=== PATIENT | female | born 1975 | race Caucasian/White ===

== ENCOUNTER → 2018-08-22 08:48 | Outpatient (CLI) | payer MEDICAID, SELFPAY ==
[2018-08-22 08:52] LABS: Microscopic, Urine URINE MICROSCOPIC (MICROSCOPIC)
--- NOTE | 2018-08-22 09:01 | XR_ITS ---
EXAM: XR cervical spine 3V HISTORY: ITS.REASON: NECK PAIN ORDERING PHYSICIAN: Terry Obrien PATIENT AGE: 43 years COMPARISON: None FINDINGS: There is head tilt toward the left with a craniocervical curvature convex right. There is normal alignment. No fracture or dislocation. Small anterior osteophytes are present at C4 and C5 inferiorly. The disc spaces are well-preserved. No significant degenerative change. IMPRESSION: Head tilt toward the left possibly related to spasm/torticollis otherwise negative
[2018-08-22 09:07] LABS: Basophils % 0.3 % (0.1-2.0); Eosinophils # 0.1 K/mm3 (0.0-0.4); Eosinophils % 0.9 % (0.1-12.0); Hemoglobin 11.3 g/dL (12.2-16.2); Lymphocytes # 2.2 K/mm3 (0.7-4.5); Lymphocytes % 24.2 % (10-50); Mean Corpuscular HGB Conc 31.4 g/dL (31.8-35.4); Mean Corpuscular Volume 79.6 fl (81-99); Mean Platelet Volume 7.4 fl (7.4-10.4); Monocytes # 0.6 K/mm3 (0.1-1.0); Monocytes % 6.6 % (1.7-9.3); Neutrophils # 6.3 K/mm3 (1.8-7.8); Neutrophils % 68.2 % (37.0-80.0); Platelet Count 388 K/mm3 (142-424); Red Blood Count 4.52 M/mm3 (4.20-5.40); Red Cell Distribution Width 13.4 % (11.5-17.5); White Blood Count 9.3 K/mm3 (4.8-10.8)
[2018-08-22 09:10] LABS: Appearance,Urine CLOUDY (Clear); Bilirubin,Urine Negative (Negative); Blood, Urine Negative (Negative); Color,Urine YELLOW (Yellow); Glucose,Urine (UA) Negative (Negative); Ketones,Urine Negative (Negative); Leukocyte Esterase,Urine Negative (Negative); Nitrate,Urine Negative (Negative); Protein,Urine Negative (Negative); Specific Gravity, Urine 1.015 (1.005-1.030); Urobilinogen,Urine 0.2 EU/dl (0.2)
[2018-08-22 09:34] LABS: Bacteria,Urine 4+ /lpf
[2018-08-22 10:03] LABS: Alanine Aminotransferase 17 U/L (12-78); Albumin Level 3.5 gm/dL (3.4-5.0); Albumin/Globulin Ratio 0.9 (1.1-1.8); Alkaline Phosphatase 123 U/L (46-116); Anion Gap 11.6 mEq/L (5-15); Aspartate Amino Transferase 4 U/L (15-37); Bilirubin,Total 0.2 mg/dL (0.2-1.0); Blood Urea Nitrogen 16 mg/dL (7-18); Calcium 8.9 mg/dL (8.5-10.1); Carbon Dioxide 27 mmol/L (21.0-32.0); Chloride 104 mmol/L (98-107); Chol/HDL Ratio 3.9 (1-3.5); Cholesterol 193 mg/dL (140-200); Creatinine,Serum 0.81 mg/dL (0.55-1.02); Estimated Glomerular Filt Rate 76 ml/min (>60); GFR (African American) 93 ML/MIN (>60); Globulin 3.7 gm/dl (1.3-3.2); Glucose 118 mg/dL (74-106); HDL Cholesterol 49 mg/dL (29-89); LDL Cholesterol 129 mg/dL (0-130); Potassium 4.6 mmoL/L (3.5-5.1); Sodium 138 mmol/L (136-145); Total Protein,Serum 7.2 gm/dL (6.4-8.2); Triglycerides 73 mg/dL (30-200); VLDL Cholesterol 15 mg/dL (0-40)
== END ==
PROVIDERS: Visit Provider Family Medicine
DX: Z00.00 Encounter for general adult medical examination without abnormal findings (principal); M54.2 Cervicalgia
CPT/HCPCS: 36415; 72040; 80053; 80061; 81001; 84439; 84443; 85025; 87086; 87088; 87186

== ENCOUNTER 2022-03-01 09:19 | Emergency (ER) | payer MEDICAID, SELFPAY ==
[2022-03-01 09:30] VITALS: BP 148/77; PULSE 83; RESP 20; TEMP 36.9; O2SAT 97; BMI 32.1
--- NOTE | 2022-03-01 10:08 | EXP.UTC ---
Discharge Plan Disposition Patient Disposition: Home, Self-Care Condition: Good Prescriptions Prescriptions: New azithromycin [Zithromax] 250 mg tablet 250 mg PO UD DOSE PK Qty: 6 0RF Rx Instructions: Take two (2) tablets today, then one (1) tablet days #2 thru #5 benzonatate [benzonatate] 100 mg capsule 100 mg PO TIDP PRN (Reason: Cough) Qty: 30 0RF guaifenesin [Mucinex] 600 mg tablet extended release 12hr 600 - 1,200 mg PO BIDP PRN (Reason: Congestion) Qty: 30 0RF methylprednisolone 4 mg Tablets,Dose Pack 4 mg PO DIRECTED Qty: 21 0RF Referrals Follow up/Referrals: Provider,Referral, MD [Primary Care Provider] - See instructions Clinical Impressions Clinical Impression: Sinusitis, Pharyngitis Stand Alone Forms Stand Alone Forms: Work/School Release Discharge ED Provider: Gabriel Cárdenas [facility] [place] HPI General Stated complaint: cough, sore throat Mode of Arrival: Ambulatory Source of Information: Patient Limitations: No Limitations Time Seen by Provider: 03/01/22 10:10 Description of Symptoms (Recalled from Triage Doc. by RN): PATIENT C/O COUGH AND SINUS DRAINAGE X 2 WEEKS HEENT Symptoms (Recalled from RN notes): Yes Resp Symptoms (Recalled from RN notes): Yes Skin Symptoms (Recalled from RN notes): No MS Symptoms (Recalled from RN notes): No Functional Status (Recalled from RN notes): WNL History of Present Illness Provider Complaint: She states that for the past 3 days she has had sinus congestion and sinus drainage. Related Data Previous Rx's Medication Instructions Recorded azithromycin 250 mg tablet 250 mg PO UD DOSE PK #6 tabs 03/01/22 (Zithromax) benzonatate 100 mg capsule 100 mg PO TIDP PRN Cough #30 caps 03/01/22 guaifenesin 600 mg tablet, 600 - 1,200 mg PO BIDP PRN 03/01/22 extended release 12 hr (Mucinex) Congestion #30 tabs methylprednisolone 4 mg tablets in 4 mg PO DIRECTED #21 tabs 03/01/22 a dose pack Allergies Allergy/AdvReac Type Severity Reaction Status Date / Time No Known Allergies Allergy Unverified 06/08/17 15:38 Worker's Comp Is this a Worker's Comp case?: No PFSH PFSH Medical History History of gastroesophageal reflux (GERD) Urinary tract infection Surgical History History of dilation and curettage History of tubal ligation Social History Smoking Status: Unknown if ever smoked alcohol intake: never current occupational status: other Travel in the last 8 weeks: None ROS Obtained: Yes All systems reviewed & no additional complaints except as documented Constitutional Constitutional: Reports chills and Reports fever(s) Eyes Eyes: Denies eye discharge ENT Ears, Nose, Mouth, and Throat: Reports as per HPI Cardiovascular Cardiovascular: Denies chest pain Respiratory Respiratory: Denies chest congestion and Reports cough Gastrointestinal Gastrointestingal: Reports nausea; Denies abdominal pain, constipation, cramping, diarrhea or vomiting Musculoskeletal Musculoskeletal: Denies arthralgias Integumentary/Breasts Skin/Breast: Denies rash Neurologic Neurologic: Denies paresthesias Physical Exam General General appearance: alert and in no apparent distress Head Head exam: atraumatic, normocephalic and normal inspection Eye Eye exam: Present normal appearance, PERRL and EOMI ENT ENT exam: Present mucous membranes moist and normal external ear exam Expanded ENT Exam TM/Canal exam: Bilateral TM: erythema and bulging Nose exam: Absent sinus tenderness Mouth exam: Present normal external inspection; Absent drooling Teeth exam: Present normal inspection Throat exam: Present tonsillar erythema, tonsillomegaly and tonsillar exudate Neck Neck exam: Present normal inspection, full ROM and trachea midline; Absent tenderness, meningismus or lymphadenopathy Chest Chest inspection:
[2022-03-01 10:18] VITALS: BP 148/77; PULSE 83; RESP 20; TEMP 36.9; O2SAT 97
== END 2022-03-01 10:34 | disposition home or self-care (01) ==
PROVIDERS: Emergency Provider Nurse Practitioner Family
DX: J02.9 Acute pharyngitis, unspecified (principal); J32.9 Chronic sinusitis, unspecified; R05.9 Cough, unspecified
CPT/HCPCS: 99212; C9803; G0463; U0003; U0005

== ENCOUNTER 2024-05-28 18:10 | Emergency (ER) | payer MEDICAID, SELFPAY ==
[2024-05-28] VITALS (8 sets, daily range): BP systolic 149–170; BP diastolic 79–93; PULSE 69–89; RESP 14–18; TEMP 36.4–36.7; O2SAT 97–100; BMI 28.3
--- NOTE | 2024-05-28 18:35 | XR_ITS ---
PROCEDURE INFORMATION: Exam: XR Right Hip Exam date and time: 05/28/2024 7:02 PM Age: 48 years old Clinical indication: Hip pain; Right hip; Additional info: Right lateral hip tenderness TECHNIQUE: Imaging protocol: Radiologic exam of the right hip. Views: 2 or 3 views hip with pelvis when performed. COMPARISON: CR XR HIP RT 2-3V W/PELVIS 05/28/2024 7:02 PM FINDINGS: Bones/joints: Bony overgrowth superolateral acetabulum. Soft tissues: Unremarkable. IMPRESSION: 1. No acute findings. 2. Bony overgrowth superolateral acetabulum.
--- NOTE | 2024-05-28 18:35 | CT_ITS ---
PROCEDURE INFORMATION: Exam: CT Cervical Spine Without Contrast Exam date and time: 05/28/2024 7:21 PM Age: 48 years old Clinical indication: Neck pain; Additional info: Right sided neck pain, decreased strength TECHNIQUE: Imaging protocol: Computed tomography of the cervical spine without contrast. Radiation optimization: All CT scans at this facility use at least one of these dose optimization techniques: automated exposure control; mA and/or kV adjustment per patient size (includes targeted exams where dose is matched to clinical indication); or iterative reconstruction. COMPARISON: CR [id number] XR cervical spine 3V 08/22/2018 9:18 AM FINDINGS: Bones: Level moderate multilevel bilateral facet arthropathy. Osseous alignment is normal. No acute fracture or subluxation. Lungs: Lung apices are normal. Thyroid: Thyroid gland is mildly enlarged and heterogeneous in appearance Soft tissues: Unremarkable. IMPRESSION: 1. Mild degenerative changes of the cervical spine. No acute fracture 2. Mildly enlarged, heterogeneous thyroid gland. Correlation with thyroid ultrasound recommended.
--- NOTE | 2024-05-28 18:35 | XR_ITS ---
PROCEDURE INFORMATION: Exam: XR Lumbosacral Spine Exam date and time: 05/28/2024 7:04 PM Age: 48 years old Clinical indication: Other: Acute on chronic pain TECHNIQUE: Imaging protocol: Radiologic exam of the lumbosacral spine. Views: 2 or 3 views. COMPARISON: CR XR HIP RT 2-3V W/PELVIS 05/28/2024 7:02 PM FINDINGS: Bones/joints: Normal. No acute fracture. Normal alignment. Soft tissues: Unremarkable. IMPRESSION: No acute findings.
--- NOTE | 2024-05-28 18:35 | CT_ITS ---
PROCEDURE INFORMATION: Exam: CT Neck With Contrast Exam date and time: 05/28/2024 7:24 PM Age: 48 years old Clinical indication: Mass, lump, or swelling in neck; Right; Additional info: Neck/ thyroid mass right side TECHNIQUE: Imaging protocol: Computed tomography of the neck with contrast. Radiation optimization: All CT scans at this facility use at least one of these dose optimization techniques: automated exposure control; mA and/or kV adjustment per patient size (includes targeted exams where dose is matched to clinical indication); or iterative reconstruction. Contrast material: ISOVUE; Contrast volume: 75 ml; Contrast route: IV; COMPARISON: CT CERVICAL SPINE WO CON 05/28/2024 7:21 PM FINDINGS: Salivary glands: Normal. Glands are normal in size. Pharynx: Unremarkable. No significant tonsillar enlargement. Prevertebral and retropharyngeal spaces: Unremarkable. Larynx: Unremarkable. Epiglottis is normal. Thyroid: Thyroid gland is moderately enlarged and diffusely heterogeneous in appearance. Several ill-defined nodular and/or cystic lesions noted Trachea: Visualized trachea is unremarkable. Lungs: Unremarkable as visualized. Lymph nodes: Unremarkable. No lymphadenopathy. Bones/joints: Unremarkable. No acute fracture. Soft tissues: Unremarkable. No significant soft tissue swelling. IMPRESSION: Mildly enlarged multinodular appearing thyroid gland. Correlation with thyroid ultrasound recommended
--- NOTE | 2024-05-28 18:41 | ED_ITS ---
<Statement entered by Farideh Sr DO - 05/28/24 22:20> I was consulted by the YENI, and we discussed the complexity of the problems being addressed. I approved the treatment and management plan for this patient's care in the emergency department, thus performing a substantive portion of the medical decision making. Farideh Sr DO Discharge Plan Disposition Patient Disposition: Home, Self-Care Condition: Good Prescriptions Prescriptions: No Action azithromycin [Zithromax] 250 mg tablet 250 mg PO UD DOSE PK Qty: 6 0RF Rx Instructions: Take two (2) tablets today, then one (1) tablet days #2 thru #5 benzonatate [benzonatate] 100 mg capsule 100 mg PO TIDP PRN (Reason: Cough) Qty: 30 0RF guaifenesin [Mucinex] 600 mg tablet extended release 12hr 600 - 1,200 mg PO BIDP PRN (Reason: Congestion) Qty: 30 0RF methylprednisolone 4 mg Tablets,Dose Pack 4 mg PO DIRECTED Qty: 21 0RF Referrals Follow up/Referrals: Farhad Gordon DO [Staff Physician] - See instructions Gill Brower DO [Referring] - See instructions Whit Lobato [Primary Care Provider] - See instructions Activity Restrictions/Add. Instructions Additional Instructions/Restrictions: You were seen for abnormal thyroid imaging. You will need a follow up ultrasound. Please call your PCP as well as the roll over loader Dr. Brower. You can also see orthopedics for your hip pain. Clinical Impressions Clinical Impression: Acute hip pain, Thyroid nodule Instructions Patient Instructions: DI for Thyroid Nodule, DI for Hip Pain Print Language Print Language: [place] Discharge ED Provider: Farideh Sr General Adult HPI General Chief complaint: PAIN Stated complaint: right side pain all the way down Time Seen by Provider: 05/28/24 18:15 Mode of Arrival: Ambulatory Source of Information: Patient Limitations: No Limitations Description of Symptoms (Recalled from ER Triage Doc. by RN): pain to right side of body head to toe History of Present Illness HPI narrative: Patient presents complaining of right sided neck swelling and pain. She reports that she has noted the symptoms for 4 months. Her PCP has ordered a CT scan however it was denied. She reports that the pain radiates into her axilla down into her back and hip and into her foot. She reports that she has been on Ozempic for the last 8 months and recently discontinued it. She reports that she feels she has decreased muscle tone and decreased strength in her upper extremities. She denies any saddle anesthesias or bowel or bladder incontinence. She does have some nausea without vomiting, even after stopping Ozempic. MD complaint: neck pain Onset (ago): month(s) (4) Location: neck Radiation: other (axilla, back, hip, foot) Severity: moderate Consistency: constant Relieving factors: none Exacerbating factors: none Associated symptoms: denies other symptoms Treatments prior to arrival: none Related Data Previous Rx's ?Medication ?Instructions ?Recorded azithromycin 250 mg tablet 250 mg PO UD DOSE PK #6 tabs 03/01/22 (Zithromax) benzonatate 100 mg capsule 100 mg PO TIDP PRN Cough #30 caps 03/01/22 guaifenesin 600 mg tablet, 600 - 1,200 mg (1 - 2 x 600 mg) PO 03/01/22 extended release 12 hr (Mucinex) BIDP PRN Congestion #30 tabs methylprednisolone 4 mg tablets in 4 mg PO DIRECTED #21 tabs 03/01/22 a dose pack Allergies Allergy/AdvReac Type Severity Reaction Status Date / Time No Known Allergies Allergy Unverified 06/08/17 15:38 [facility] Disclaimer: The information contained in this section may have been updated after the patient was seen, as this information can be updated by other users. Medical History History of gastroesophageal reflux (GERD) Urinary tract infection Surgical History History of dilation and curettage History of tubal ligation Social History (Updated 03/01/22 @ 21:16 by Gabriel Cárdenas APRN) Smoking Status: Never smoker alcohol intake: never current occupational status: other Travel in the last 8 weeks: None ROS Obtained: Yes Systems reviewed as appropriate & no additional complaints except as documented Physical Exam General General appearance: alert and in no apparent distress Head Head exam: atraumatic and normocephalic Eye Eye exam: Present normal appearance and EOMI Neck Neck exam: Present thyromegaly (right sided mass palpable ) Chest Chest inspection: Present symmetric chest wall rise Respiratory Respiratory exam: Present normal lung sounds bilaterally; Absent wheezes or stridor Cardiovascular Cardiovascular exam: Present regular rate and normal rhythm; Absent systolic murmur Extremities Exam Extremities exam: Present full ROM and other (Right lateral hip TTP, FROM, N/V intact) Back Exam Back exam: Absent tenderness, CVA tenderness (R) or CVA tenderness (L) Neurological Exam Neurological exam: Present alert and oriented X3 Psychiatric Psychiatric exam: Present normal affect and normal mood Skin Skin exam: Present warm, dry and intact Medical Decision Making Medical Records Screening: Per USPSTF and CDC recommendations, given the prevalence of disease in our region, it is our hospital?s policy to screen for HIV and viral Hepatitis for all patients aged 18 and over and those with ongoing risk factors. Pierre Inquiry Pt receiving controlled substance: No Vital Signs: 05/28/24 18:21 05/28/24 18:22 05/28/24 18:31 Temperature 97.6 F Temperature Source Oral Pulse Rate 89 87 Pulse Rate [Right Radial] 89 Respiratory Rate 18 Blood Pressure 159/93 H 150/81 H Blood Pressure [Right Arm] 159/93 H Blood Pressure Mean Blood Pressure Mean [Right Arm] 115 02 Sat by Pulse Oximetry 98 97 100 Oxygen Delivery Method Room Air Room Air Room Air 05/28/24 19:01 05/28/24 19:30 05/28/24 20:00 Temperature Temperature Source Pulse Rate 88 86 73 Pulse Rate [Right Radial] Respiratory Rate Blood Pressure 149/86 H 170/82 H 154/79 H Blood Pressure [Right Arm] Blood Pressure Mean 110 104 Blood Pressure Mean [Right Arm] 02 Sat by Pulse Oximetry 98 99 100 Oxygen Delivery Method Room Air Lab Data Lab Results 05/28/24 18:19: Free T4 0.88 05/28/24 18:49: Sodium 138, Potassium 3.5, Chloride 105, Carbon Dioxide 26, Anion Gap 10.5, BUN 19 H, Creatinine 0.80, Estimated Creat Clear 96, Estimated GFR 76, Est GFR ( Amer) 92, Glucose 126 H, Calcium 9.3, TSH 1.71, HIV 1&2 Antibody Rapid Nonreactive 05/28/24 18:49 Orders (Tests/Meds): ED MEDICATIONS Discontinued Medications Generic Name Dose Route Start Last Admin Trade Name Freq PRN Reason Stop Dose Admin Iopamidol 75 ml 05/28/24 19:26 05/28/24 19:26 Iopamidol-370 (76%);100ml Bottle IV 05/28/24 19:27 75 ml ONCE ONE Administration Sodium Chloride 10 ml 05/28/24 19:26 05/28/24 19:26 Sodium Chloride 0.9% 10ml Syr (Rad Only) IV 05/28/24 19:27 10 ml ONCE ONE Administration ORDERS Category Date Time Status CT cervical spine wo con Stat Cat Scan 05/28/24 18:[address] soft tissue neck w con Stat Cat Scan 05/28/24 18:35 Completed Hip XR right minimum 2 views [XR hip RT 2-3V w/pelvis] Exams 05/28/24 18:35 Completed Stat XR lumbar spine 2-3V Stat Exams 05/28/24 18:35 Completed BMP [Basic Metabolic Panel] Stat Lab 05/28/24 18:49 Completed Free T4 (Free Thyroxine) Stat Lab 05/28/24 18:19 Completed HIV (1&2) Antibody Rapid Stat Lab 05/28/24 18:49 Completed Hep C Ab with Reflex to RNA Stat Lab 05/28/24 18:49 Received Thyroid Stimulating Hormone Stat Lab 05/28/24 18:49 Completed Radiology Data #1: Image(s): L-Spine (negative ) and Other (right hip: IMPRESSION: 1. No acute findings. 2. Bony overgrowth superolateral acetabulum. ) Image Reviewed: Yes I have reviewed radiologist's interpretation CT Data CT Scan: C-Spine (Degenerative changes ) and Other (neck) Time Received: 21:[address] Reviewed: Yes I have reviewed the patient's CT results and I have viewed the radiologist's interpretation Findings Narrative: Thyroid: Thyroid gland is moderately enlarged and diffusely heterogeneous in appearance. Several ill-defined nodular and/or cystic lesions noted US Data ED US Reviewed: Yes I have reviewed the patient's US results and I have viewed radiologist's interpretation Medical Decision Narrative: In summary patient is a 48-year-old female who presents the emergency department for evaluation of neck swelling and pain. Patient is slightly hypertensive upon arrival, afebrile. Soft tissue mass palpable in the right anterior neck/thyroid region, right lateral hip tenderness to palpate. Differential diagnosis includes thyroid mass, musculoskeletal strain, hip bursitis. Initial workup will be conducted with BMP, thyroid function studies, CT soft tissues of the neck as well as CT C-spine, x-ray lumbar spine, hip x-ray. Patient does have abnormal thyroid on imaging, including nodules and cystic lesions. She was instructed that she will need a follow-up ultrasound. Advised to contact her PCP as soon as possible, I will also give her a referral to endocrinology. Her hip x-ray does show some bony overgrowth. Will refer to orthopedics. Given this patient is appropriate for discharge at this time with follow-up instructions.. Critical Care Critical Care Time Critical Care Time: No
[2024-05-28 19:01] LABS: Chloride 105 mmol/L (98-107); Sodium 138 mmol/L (136-145)
[2024-05-28 19:02] LABS: Potassium 3.5 mmoL/L (3.5-5.1)
[2024-05-28 19:05] LABS: Anion Gap 10.5 mEq/L (5-15); Blood Urea Nitrogen 19 mg/dl (7-17); Calcium 9.3 mg/dl (8.4-10.2); Carbon Dioxide 26 mmol/L (22.0-30.0); Creatinine Clearance Estimated 96 mL/min (50-200); Estimated Glomerular Filt Rate 76 ml/min (>60); GFR (African American) 92 ML/MIN (>60); Glucose 126 mg/dl (74-100)
[2024-05-28] MEDS: SODIUM CHLORIDE 0.9% 10ML SYR (RAD ONLY) 10 ML IV (19:26)
[2024-05-28] MEDS: IOPAMIDOL-370 (76%);100ML BOTTLE 75 ML IV (19:26)
[2024-05-28 19:30] LABS: Free T4 (Free Thyroxine) 0.88 ng/dl (0.78-2.19)
[2024-05-28 19:36] LABS: Thyroid Stimulating Hormone 1.71 uIU/mL (0.465-4.68)
[2024-05-28 19:39] LABS: HIV (1&2) Antibody Rapid NONREACTIVE (NONREACTIVE)
[2024-05-30 09:16] LABS: HCV Ab Non Reactive (Non Reactive)
== END 2024-05-28 21:27 | disposition home or self-care (01) ==
PROVIDERS: Physician Assistant; Emergency Provider Emergency Medicine; PCP Obstetrics & Gynecology
DX: E04.1 Nontoxic single thyroid nodule (principal); M54.2 Cervicalgia; M54.9 Dorsalgia, unspecified; M25.551 Pain in right hip; M79.671 Pain in right foot
CPT/HCPCS: 70491; 72100; 72125; 73502; 80048; 84439; 84443; 86803; 87389; 99285; Q9967